=== PATIENT | female | born 1975 | race Caucasian/White ===

== ENCOUNTER 2016-07-29 07:58 | Emergency (ER) | payer SELFPAY | END 2016-07-29 09:55 | disposition home or self-care (01) | LOC: ER1 07:58 | DX: S90.32XA Contusion of left foot, initial encounter (principal); S20.212A Contusion of left front wall of thorax, initial encounter; S40.022A Contusion of left upper arm, initial encounter; S40.021A Contusion of right upper arm, initial encounter; S90.812A Abrasion, left foot, initial encounter; Y04.2XXA Assault by strike against or bumped into by another person, initial encounter; Z23 Encounter for immunization | CPT/HCPCS: 71020; 73630; 90471; 90715; 99283 ==

== ENCOUNTER 2020-09-28 00:38 | Emergency (ER) | payer OTHER ==
[~2020-09-28 00:38] MED LIST: BACTRIM DS TAB1 EACH PO; CLEOCIN HCL150 MG PO; KEFLEX500 MG PO; LODINE CAP 300300 MG PO; MIRTAZAPINE7.5 MG PO; NEURONTIN300 MG PO; OXYCODONE HCL5 M1 PO; SULFAMETHOXAZO1 EACH PO; ZOLOFT100 MG PO; ZYVOX600 MG PO
[2020-09-28] MEDS ORDERED: LODINE CAP 300300 MG PO (04:00)
[2020-09-28] MEDS ORDERED: NORFLEX 100 MG100 MG PO (04:00)
== END 2020-09-28 04:00 | disposition home or self-care (01) ==
LOC: ER1 00:38
DX: R51.9 Headache, unspecified (principal); M54.5 Low back pain; G89.29 Other chronic pain; F17.210 Nicotine dependence, cigarettes, uncomplicated
CPT/HCPCS: 72100; 96372; 99283; J1885

== ENCOUNTER 2020-12-20 02:23 | Emergency (ER) | payer OTHER ==
[~2020-12-20 02:23] MED LIST changes: +NORFLEX 100 MG100 MG PO
[2020-12-20 04:48] LABS: HEMOGLOBIN 12.6 gm/dl (12.3-15.3); RED BLOOD COUNT 4.08 M/UL (4.00-5.10); WHITE BLOOD COUNT 10.4 K/UL (4.5-11.0)
[2020-12-20 05:12] LABS: BUN/CREATININE RATIO 22 (0-10)
[2020-12-20] MEDS ORDERED: MEDROL DOSEPAK 24 MG PO (09:50)
[2020-12-20] MEDS ORDERED: NORFLEX 100 MG100 MG PO (09:50)
== END 2020-12-20 11:15 | disposition home or self-care (01) ==
LOC: ER1 02:23
PROVIDERS: Physician Assistant
DX: M54.5 Low back pain (principal); G89.29 Other chronic pain; R60.0 Localized edema; I10 Essential (primary) hypertension; E78.5 Hyperlipidemia, unspecified; F17.210 Nicotine dependence, cigarettes, uncomplicated
CPT/HCPCS: 72131; 80053; 81001; 83880; 85025; 96372; 99284; J1100; J1885

== ENCOUNTER 2021-08-19 22:55 | Emergency (ER) | payer OTHER ==
[~2021-08-19 22:55] MED LIST changes: +MEDROL DOSEPAK 24 MG PO
[2021-08-19 23:45] LABS: HEMOGLOBIN 16.1 gm/dl (12.3-15.3); RED BLOOD COUNT 4.86 M/UL (4.00-5.10); WHITE BLOOD COUNT 12.1 K/UL (4.5-11.0)
[2021-08-20 00:08] LABS: BUN/CREATININE RATIO 22 (0-10)
== END 2021-08-20 11:30 | disposition home or self-care (01) ==
LOC: ER1 22:55
PROVIDERS: Emergency Medicine; Student in an Organized Health Care Education/Training Program
DX: F10.129 Alcohol abuse with intoxication, unspecified (principal); J44.9 Chronic obstructive pulmonary disease, unspecified; F17.200 Nicotine dependence, unspecified, uncomplicated
CPT/HCPCS: 80053; 80307; 81001; 85025; 99284; G0480